=== PATIENT | male | born 1975 | race Caucasian/White ===

== ENCOUNTER 2017-01-22 02:32 | Emergency (ER) | payer MEDICAID ==
[~2017-01-22] VITALS: Ht 175.3 cm; Wt 108.0 kg
[2017-01-22 02:37] VITALS: Ht 175.3 cm; Wt 108.0 kg
--- NOTE | 2017-01-22 03:38 | ERD ---
ER Documentation Chief Complaint Date/Time DATE: 01/22/17 TIME: 03:36 Chief Complaint right upper back pain HPI 40-year-old male presents in emergency department for complaints of right upper back pain radiating to the right upper quadrant that started today. Patient describes the pain is sharp pain, 6/10 scale, not better or worse with anything. It is worse upon movement at times. Patient denies any trauma and affected area. Patient drinks daily, drinks 10 bottles per day of alcohol, has been drinking for years. Patient denies any nausea or vomiting. Patient denies any fever or chills. ROS All systems reviewed and are negative except as per history of present illness. Medications Home Meds Active Scripts Ibuprofen* (Motrin*) 400 Mg Tab, 400 MG PO Q6H Y for PAIN AND OR ELEVATED TEMP, #30 TAB Prov:ABBIE HEARD NP 01/22/17 Ondansetron (Ondansetron Odt) 4 Mg Tab.rapdis, 4 MG PO Q8 Y for NAUSEA AND/OR VOMITING, #30 TAB Prov:ABBIE HEARD NP 01/22/17 Ciprofloxacin Hcl* (Ciprofloxacin Hcl*) 500 Mg Tablet, 500 MG PO BID for 10 Days , TAB Prov:ABBIE HEARD NP 01/22/17 Hydrocodone/Acetaminophen ([place] 5-325 Tablet) 1 Each Tablet, 1 TAB PO Q6H Y for PAIN, #20 TAB Prov:ABBIE HEARD NP 01/22/17 Reported Medications [none] Unknown Strength No Conflict Check 01/22/17 Allergies Allergies: Coded Allergies: No Known Allergy (Unverified , 01/22/17) PMhx/Soc Medical and Surgical Hx: pt denies Medical Hx, pt denies Surgical Hx Hx Alcohol Use: Yes (everyday) Hx Substance Use: No Hx Tobacco Use: No FmHx Family History: No coronary disease, No diabetes, No other Physical Exam Vitals Vital Signs Date Time Temp Pulse Resp B/P Pulse Ox O2 Delivery O2 Flow Rate FiO2 01/22/17 02:37 98.2 73 18 161/91 97 Physical Exam GENERAL: The patient is well developed and appropriate for usual state of health, in no apparent distress. CHEST: Clear to auscultation bilaterally. There are no rales, wheezes or rhonchi. HEART: Regular rate and rhythm. No murmurs, clicks, rubs or gallops. No S3 or S4. ABDOMEN: Soft, nontender and nondistended. Good bowel sounds. No rebound or guarding. No gross peritonitis. No gross organomegaly or masses. No Branham sign or McBurney point tenderness. BACK: No midline or flank tenderness. EXTREMITIES: Equal pulses bilaterally. There is no peripheral clubbing, cyanosis or edema. No focal swelling or erythema. Full range of motion. Grossly neurovascularly intact. NEURO: Alert and oriented. Cranial nerves 2-12 intact. Motor strength in all 4 extremities with 5/5 strength. Sensation grossly intact. Normal speech and gait. SKIN: There is no apparent rash or petechia. The skin is warm and dry. HEMATOLOGIC AND LYMPHATIC: There is no evidence of excessive bruising or lymphedema. No gross cervical, axillary, or inguinal lymphadenopathy. Result Diagram: 01/22/17 0340 01/22/17 0340 Results 24 hrs Laboratory Tests Test 01/22/17 03:35 01/22/17 03:40 Urine Color YELLOW Urine Clarity CLEAR Urine pH 5.0 Urine Specific [place] 1.019 Urine Ketones NEGATIVEmg/dL Urine Nitrite NEGATIVEmg/dL Urine Bilirubin NEGATIVEmg/dL Urine Urobilinogen NEGATIVEmg/dL Urine Leukocyte Esterase 1+Tim/ul Urine Microscopic RBC 1/HPF Urine Microscopic WBC 12/HPF Urine Hemoglobin NEGATIVEmg/dL Urine Glucose NEGATIVEmg/dL Urine Total Protein NEGATIVEmg/dl White Blood Count 6.410^3/ul Red Blood Count 4.5710^6/ul Hemoglobin 15.4g/dl Hematocrit 42.2% Mean Corpuscular Volume 92.3fl Mean Corpuscular Hemoglobin 33.7pg Mean Corpuscular Hemoglobin Concent 36.5g/dl Red Cell Distribution Width 11.9% Platelet Count 95205^3/UL Mean Platelet Volume 11.3fl Neutrophils % 66.1% Lymphocytes % 23.7% Monocytes % 7.5% Eosinophils % 1.7% Basophils % 0.5% Nucleated Red Blood Cells % 0.0/100WBC Neutrophils # 4.310^3/ul Lymphocytes # 1.510^3/ul Monocytes # 0.510^3/ul Eosinophils # 0.110^3/ul Basophils # 0.010^3/ul Nucleated Red Blood Cells # 0.010^3/ul Sodium Level 141mmol/L Potassium Level 3.4mmol/L Chloride Level 100mmol/L Carbon Dioxide Level 21mmol/L Anion Gap 23 Blood Urea Nitrogen 12mg/dl Creatinine 0.72mg/dl Glucose Level 119mg/dl Calcium Level 9.4mg/dl Total Bilirubin 0.8mg/dl Direct Bilirubin 0.00mg/dl Indirect Bilirubin 0.8mg/dl Aspartate Amino Transf (AST/SGOT) 172IU/L Alanine Aminotransferase (ALT/SGPT) 185IU/L Alkaline Phosphatase 79IU/L Total Protein 8.2g/dl Albumin 4.7g/dl Globulin 3.50g/dl Albumin/Globulin Ratio 1.34 Lipase 48U/L PROCEDURE: CT abdomen and pelvis without intravenous contrast. CLINICAL INDICATION: Pain. TECHNIQUE: CT of the abdomen/pelvis was performed utilizing axial images with reconstructions in sagittal and coronal planes. The administered radiation dose is CTDI 21.4 mGy, DLP 1483 mGy-cm. COMPARISON: No pertinent prior examinations were submitted for comparison. FINDINGS: Visualized Chest: There is mild cardiomegaly. Abdomen: The spleen, pancreas, gallbladder,and adrenal glands are unremarkable. The liver is markedly, diffusely decreased in attenuation, compatible with hepatic steatosis. The kidneys are without hydronephrosis. No definite urinary calculi are seen. There is no evidence of bowel obstruction. The appendix is normal. No intra- abdominal free air is seen. There is no evidence of intra-abdominal adenopathy or free fluid. Pelvis: There is no evidence of pelvic adenopathy or free fluid. The prostate and bladder are unremarkable. Osseous structures: Unremarkable. IMPRESSION: No acute findings. Hepatic steatosis. RPTAT: HIKT .Kwabena Rush MD, MD Date Time Electronically viewed and signed by .Kwabena Rush MD, MD on 01/22/2017 04:42 .T/ CC: ABBIE HEARD ONLINE MARKETING MANAGER Procedures/MDM Medical Decision Making: Patient's pain nonspecific at this time, possible musculoskeletal pain, can be viral. Patient has urinary tract infection and will be treated. There is low suspicion for abdominal emergencies at this time. Patients abdominal exam is normal at this time. Patients radiology exam does not show any abdominal emergencies at this time. There is low suspicion for appendicitis, cholecystitis, abdominal aortic aneurysms or peritonitis at this time. There is low suspicion for sepsis. Patient appears well and is hemodynamically stable. Disposition: Home. Condition: Stable Prescription ciprofloxacin, [place], Zofran, ibuprofen Instructions: Patient is advised to take medications as prescribed. Patient is advised to rest, increase fluid intake and do brat diet for next 1-2 days and progress as tolerated. Patient is advised that if symptoms are worse, severe abdominal pain, uncontrolled vomiting, high fever, severe flank pain, worst signs and symptoms, to return to the emergency department immediately. Otherwise, patient can follow up with primary care doctor in 5-7 days. Departure Diagnosis: Primary Impression: Back pain Back pain location: thoracic back pain Chronicity: acute Back pain laterality: right Qualified Code: M54.6 - Acute right-sided thoracic back pain Additional Impression: UTI (urinary tract infection) Urinary tract infection type: acute cystitis Hematuria presence: without hematuria Qualified Code: N30.00 - Acute cystitis without hematuria Condition: Stable Patient Instructions: Back Pain (Acute Or Chronic), Understanding Urinary Tract Infections (UTIs) Additional Instructions: Patient is advised to take medications as prescribed. Patient is advised to rest , increase fluid intake and do brat diet for next 1-2 days and progress as tolerated. Patient is advised that if symptoms are worse, severe abdominal pain , uncontrolled vomiting, high fever, severe flank pain, worst signs and symptoms , to return to the emergency department immediately. Otherwise, patient can follow up with primary care doctor in 5-7 days. ABBIE HEARD NP Jan 22, 2017 03:38
[2017-01-22 04:29] LABS: BASOPHILS % 0.5 % (0.0-2.0); EOSINOPHILS # 0.1 10^3/ul (0.0-0.5); EOSINOPHILS % 1.7 % (0.0-7.0); HEMATOCRIT 42.2 % (42.0-52.0); HEMOGLOBIN 15.4 g/dl (14.0-18.0); LYMPHOCYTES # 1.5 10^3/ul (0.8-2.9); LYMPHOCYTES % 23.7 % (15.0-51.0); MEAN CORPUSCULAR HEMOGLOBIN 33.7 pg (29.0-33.0); MEAN CORPUSCULAR HGB CONC 36.5 g/dl (32.0-37.0); MEAN CORPUSCULAR VOLUME 92.3 fl (82.0-101.0); MEAN PLATELET VOLUME 11.3 fl (7.4-10.4); MONOCYTE # 0.5 10^3/ul (0.3-0.9); MONOCYTES % 7.5 % (0.0-11.0); NEUTROPHIL # 4.3 10^3/ul (1.6-7.5); NEUTROPHILS % 66.1 % (39.0-77.0); PLATELET COUNT 166 10^3/UL (140-415); RED BLOOD COUNT 4.57 10^6/ul (4.70-6.10); RED CELL DISTRIBUTION WIDTH 11.9 % (11.5-14.5); WHITE BLOOD COUNT 6.4 10^3/ul (4.8-10.8)
[2017-01-22 04:31] LABS: ADD UMIC YES; UR ASCORBIC ACID NEGATIVE (NEGATIVE); UR BILIRUBIN (Dip) NEGATIVE (NEGATIVE); UR BLOOD (Dip) NEGATIVE (NEGATIVE); UR CLARITY CLEAR (CLEAR); UR COLOR YELLOW (YELLOW); UR GLUCOSE (Dip) NEGATIVE (NEGATIVE); UR KETONES (Dip) NEGATIVE (NEGATIVE); UR LEUKOCYTE ESTERASE (Dip) 1+ Leu/ul (NEGATIVE); UR NITRITE (Dip) NEGATIVE (NEGATIVE); UR RBC 1 /HPF (0-5); UR SPECIFIC GRAVITY (Dip) 1.019 (1.003-1.030); UR TOTAL PROTEIN (Dip) NEGATIVE (NEGATIVE); UR UROBILINOGEN (Dip) NEGATIVE (NEGATIVE)
--- NOTE | 2017-01-22 04:42 | RADRPT ---
PROCEDURE: CT abdomen and pelvis without intravenous contrast. CLINICAL INDICATION: Pain. TECHNIQUE: CT of the abdomen/pelvis was performed utilizing axial images with reconstructions in s agittal and coronal planes. The administered radiation dose is CTDI 21.4 mGy, DLP 1483 mGy-cm. COMPARISON: No pertinent prior examinations were submitted for comparison. FINDINGS: Visualized Chest: There is mild cardiomegaly. Abdomen: The spleen, pancreas, gallbladder,and adrenal glands are unremarkable. The liver is markedly, dif fusely decreased in attenuation, compatible with hepatic steatosis. The kidneys are without hydronephrosis. No definite urinary calculi are seen. There is no evidence of bowel obstruction. The appendix is normal. No intra-abdominal free air is seen. There is no evidence of intra-abdominal adenopathy or free fluid. Pelvis: There is no evidence of pelvic adenopathy or free fluid. The prostate and bladder are unremarkable. Osseous structures: Unremarkable. IMPRESSION: No acute findings. Hepatic steatosis. RPTAT: HIKT .Kwabena Rush MD, MD Date Time Electronically viewed and signed by .Kwabena Rush MD, MD on 01/22/2017 04:42 .T/
[2017-01-22 04:46] LABS: ALBUMIN 4.7 g/dl (3.3-4.9); ALBUMIN/GLOBULIN RATIO 1.34; BILIRUBIN,INDIRECT 0.8 mg/dl (0-1.1); BILIRUBIN,TOTAL 0.8 mg/dl (0.2-1.3); CALCIUM 9.4 mg/dl (8.4-10.2); CREATININE 0.72 mg/dl (0.61-1.24); POTASSIUM 3.4 mmol/L (3.5-5.1); TOTAL PROTEIN 8.2 g/dl (6.1-8.1)
[2017-01-22] MEDS ORDERED: IBUP400T22 PO (05:06)
[2017-01-22] MEDS ORDERED: HYDR-906 PO (05:06)
[2017-01-22] MEDS ORDERED: ONDA4TAB14 PO (05:06)
[2017-01-22] MEDS ORDERED: CIPR500T4 PO (05:06)
== END 2017-01-22 05:14 | disposition home or self-care (01) ==
LOC: FTE 02:32
DX: M54.6 Pain in thoracic spine (principal); N30.00 Acute cystitis without hematuria
CPT/HCPCS: 36415; 74176; 80053; 81001; 83690; 85025; Z7502

== ENCOUNTER 2018-10-14 18:21 | Inpatient (IN) | payer MEDICAID ==
[~2018-10-14] VITALS: Ht 175.3 cm; Wt 110.0 kg
[~2018-10-14 18:21] MED LIST: CIPR500T4 PO; HYDR-4011 PO; IBUP-1561 PO; ONDA4TAB14 PO
[2018-10-14] MEDS ORDERED: METOCLOPRAMIDE 10 MG INJ IV STA (21:11)
[2018-10-14] MEDS ORDERED: SOD CHLORIDE 0.9% 1,000 ML IV STA (21:11)
[2018-10-14] MEDS ORDERED: IOHEXOL 300MG/ML 150 ML BTL ONE (22:13)
[2018-10-14] MEDS ORDERED: SOD CHLORIDE 0.9% 100 ML ONE (22:13)
[2018-10-15] MEDS ORDERED: PHEN1SUP80 PR (00:24)
[2018-10-15] MEDS ORDERED: POLY17PO6 PO (00:24)
[2018-10-15] MEDS ORDERED: MAGN296S4 PO (00:30)
[2018-10-15] MEDS ORDERED: SOD CHLORIDE 0.9% 1,000 ML IV SCH (02:18)
[2018-10-15] MEDS ORDERED: NACL 0.9% 3 ML SYG IV SCH (02:30)
[2018-10-15] MEDS ORDERED: ONDANSETRON 4 MG INJ IV PRN (02:30)
[2018-10-15] MEDS ORDERED: morphine 2 MG INJ IV PRN (02:30)
--- NOTE | 2018-10-15 02:35 | ERD ---
ER Documentation Chief Complaint Chief Complaint CONSTIPATION X3DAYS HPI This is a 43-year-old male patient who presents to emergency room with complaint of no bowel movements times 5 days now with abdominal pain. States he is taking senna and tried enemas without any results. Denies fevers although he says he has been feeling hot, no vomiting. Eyes any chronic medical conditions. ROS All systems reviewed and are negative except as per history of present illness. Medications Home Meds Active Scripts Magnesium Citrate (Citroma) 296 Ml Solution, 296 ML PO ONCE for CONSTIPATION for 3 Days, #1 BOTTLE Prov:DEJUAN BAKER NP 10/15/18 Polyethylene Glycol* (Miralax*) 17 Gm Powd.pack, 17 GM PO BID, #30 PACKET Prov:DEJUAN BAKER NP 10/15/18 Phenylephrine HCl/[place] Butter* (Preparation H* Suppository) 1 Each Supp.rect, 1 EACH IN BID for 10 Days, #20 SUPP.RECT Prov:DEJUAN BAKER NP 10/15/18 Ibuprofen* (Motrin*) 400 Mg Tab, 400 MG PO Q6H PRN for PAIN AND OR ELEVATED TEMP, #30 TAB Prov:ABBIE HEARD NP 01/22/17 Ondansetron (Ondansetron Odt) 4 Mg Tab.rapdis, 4 MG PO Q8 PRN for NAUSEA AND/OR VOMITING, #30 TAB Prov:ABBIE HEARD NP 01/22/17 Ciprofloxacin Hcl* (Ciprofloxacin Hcl*) 500 Mg Tablet, 500 MG PO BID for 10 Days, TAB Prov:ABBIE HEARD NP 01/22/17 Hydrocodone/Acetaminophen ([place] 5-325 Tablet) 1 Each Tablet, 1 TAB PO Q6H PRN for PAIN, #20 TAB Prov:ABBIE HEARD NP 01/22/17 Reported Medications [none] Unknown Strength No Conflict Check 01/22/17 Allergies Allergies: Coded Allergies: No Known Allergy (Unverified , 01/22/17) PMhx/Soc Medical and Surgical Hx: pt denies Medical Hx, pt denies Surgical Hx Hx Alcohol Use: Yes (everyday) Hx Substance Use: No Hx Tobacco Use: No Physical Exam Vitals Vital Signs Date Temp Pulse Resp B/P (MAP) Pulse Ox O2 O2 Flow FiO2 Time Delivery Rate 10/15/18 100.1 88 18 121/80 98 Room Air 02:03 (94) 10/15/18 101.2 78 20 114/67 95 Room Air 01:34 (83) 10/14/18 99.2 56 19 142/88 95 19:08 (106) Physical Exam Const: No acute distress Head: Atraumatic Eyes: Normal Conjunctiva ENT: Normal External Ears, Nose and Mouth. Neck: Full range of motion. No meningismus. Resp: Clear to auscultation bilaterally Cardio: Regular rate and rhythm, no murmurs Abd: Firm, warm at lower abdomen, diffuse tenderness, no active bowel sounds, neg Branham Skin: No petechiae or rashes Back: No midline or flank tenderness Ext: No cyanosis, or edema Neur: Awake and alert Psych: Normal Mood and Affect Result Diagram: 10/14/18211610/14/182116 Results 24 hrs Laboratory Tests Test 10/14/18 21:17 10/14/18 21:18 White Blood Count 15.1 10^3/ul Red Blood Count 4.30 10^6/ul Hemoglobin 13.6 g/dl Hematocrit 39.5 % Mean Corpuscular Volume 91.9 fl Mean Corpuscular Hemoglobin 31.6 pg Mean Corpuscular Hemoglobin Concent 34.4 g/dl Red Cell Distribution Width 12.2 % Platelet Count 174 10^3/UL Mean Platelet Volume 11.6 fl Immature Granulocytes % 0.800 % Neutrophils % 79.3 % Lymphocytes % 11.7 % Monocytes % 6.6 % Eosinophils % 1.2 % Basophils % 0.4 % Nucleated Red Blood Cells % 0.0 /100WBC Immature Granulocytes # 0.120 10^3/ul Neutrophils # 12.0 10^3/ul Lymphocytes # 1.8 10^3/ul Monocytes # 1.0 10^3/ul Eosinophils # 0.2 10^3/ul Basophils # 0.1 10^3/ul Nucleated Red Blood Cells # 0.0 10^3/ul Sodium Level 138 mmol/L Potassium Level 3.3 mmol/L Chloride Level 100 mmol/L Carbon Dioxide Level 26 mmol/L Anion Gap 12 Blood Urea Nitrogen 12 mg/dl Creatinine 0.90 mg/dl Est Glomerular Filtrat Rate mL/min > 60 mL/min Glucose Level 148 mg/dl Lactic Acid Level 1.0 mmol/L Calcium Level 9.1 mg/dl Total Bilirubin 1.0 mg/dl Direct Bilirubin 0.00 mg/dl Indirect Bilirubin 1.0 mg/dl Aspartate Amino Transf (AST/SGOT) 68 IU/L Alanine Aminotransferase (ALT/SGPT) 35 IU/L Alkaline Phosphatase 122 IU/L Total Protein 8.1 g/dl Albumin 4.1 g/dl Globulin 4.00 g/dl Albumin/Globulin Ratio 1.02 Lipase 510 U/L Urine Color AMITA Urine Clarity SLIGHTLY CLOUDY Urine pH 6.0 Urine Specific [place] 1.020 Urine Ketones NEGATIVE mg/dL Urine Nitrite NEGATIVE mg/dL Urine Bilirubin NEGATIVE mg/dL Urine Urobilinogen NEGATIVE mg/dL Urine Leukocyte Esterase NEGATIVE Tim/ul Urine Microscopic RBC 1 /HPF Urine Microscopic WBC 1 /HPF Urine Hemoglobin NEGATIVE mg/dL Urine Glucose NEGATIVE mg/dL Urine Total Protein 1+ mg/dl Current Medications Medications Dose Sig/[place] Start Time Status Last (Trade) Ordered Route PRN Stop Time Admin Dose Reason Admin Sodium 1,000 ml @ Q1H STAT 10/14/18 DC 10/14/18 Chloride 1,000 mls/hr IV 21:11 21:44 10/14/18 22:10 10 mg ONCE STAT 10/14/18 DC 10/14/18 Metoclopramid IV 21:11 21:44 e HCl 10/14/18 21:14 (Reglan) IV Flush 10 ml STK-MED 10/14/18 DC (NS 10 ml) ONCE .ROUTE 22:13 10/14/18 22:14 Sodium 100 ml @ ud STK-MED 10/14/18 DC Chloride ONCE .ROUTE 22:13 10/14/18 22:14 Iohexol 150 ml STK-MED 10/14/18 DC (Omnipaque ONCE .ROUTE 22:13 300mg/ ml) 10/14/18 22:14 Sodium 1,000 ml @ Q6H40M IV 10/15/18 UNV Chloride 150 mls/hr 02:18 IV Flush 3 ml PER 10/15/18 UNV (NS 3 ml) PROTOCOL IV 02:30 Ondansetron 4 mg Q6H PRN 10/15/18 UNV HCl (Zofran IV 02:30 Inj) NAUSEA/VOMITI NG Morphine 2 mg Q4H PRN 10/15/18 UNV Sulfate IV .SEVERE 02:30 (morphine) PAIN 7-10 Famotidine 20 mg Q12 IV 10/15/18 UNV (Pepcid Iv) 09:00 Procedures/MDM This is a 43-year-old male patient who presents to the emergency room with complaint of constipation times 5 days. And now is having abdominal pain. ED COURSE: The patient was stable throughout ED course. I kept the patient and/or family informed of laboratory and diagnostic imaging results throughout the ED course. DIAGNOSTIC IMAGIN. Acute interstitial pancreatitis involving the pancreatic head and neck with acute peripancreatic collections in the right anterior pararenal space extending into the right pelvic sidewall and also in the gastrocolic ligament. The pancreatitis involves the pancreaticoduodenal groove with associated inflammation of the duodenum and common bile duct. Negative for evidence of biliary obstruction. 2. Mild inflammation of the right ureter and right renal pelvis likely due to the acute pancreatitis without hydronephrosis. The right ureter courses through the peripancreatic collection in the right retroperitoneum. 3. Mild hepatosplenomegaly. Read by radiologist. MEDICATIONS GIVEN: MICHI Reyes Patient tolerated medication well with no adverse reactions. Patient reported improvement in pain. MDM: CT results shared with who took over care of patient and admitted patient to hospital. Need for admission discussed with patient and his , patient verbalized understanding of need to stay in hospital. Patient states he only drinks alcohol. . Departure Diagnosis: Primary Impression: Abdominal pain Additional Impression: Constipation Condition: Stable Patient Instructions: Abdominal Pain, Constipation (Adult) Referrals: NO PRIMARY,CARE PHYSICIAN (PCP) Additional Instructions: Thank you very much for allowing us to participate in your care. Your health and safety is our top priority at [facility]. Call your primary care doctor TOMORROW for an appointment during the next 2-4 days and bring all the information and medications prescribed. Have prescriptions filled and follow precisely the directions on the label. If the symptoms get worse and your provider is unavailable, return to the Emergency Department immediately. DEJUAN BAKER NP Oct 15, 2018 02:35
[2018-10-15] MEDS ORDERED: IBUPROFEN 600 MG TAB PO ONE (03:00)
[2018-10-15] MEDS: MEROPENEM 500MG/50 ML (PMX) 50 ML IVPB SCH ×2 (06:33→21:02)
[2018-10-15 08:15] VITALS: BP 112/63; PULSE 74; RESP 18
--- NOTE | 2018-10-15 08:30 | HP ---
Date/Time of Note Date/Time of Note DATE: 10/15/18 TIME: 08:24 Assessment/Plan VTE Prophylaxis Pharmacological prophylaxis: heparin Lines/Catheters IV Catheter Type (from Nrs): Saline Lock Assessment/Plan Assessment/Plan 43-year-old male with a history of alcohol abuse presented with abdominal pain and constipation and found 1. Acute alcoholic pancreatitis -N.p.o. with IV fluid -Given fever, will start him on meropenem -Pain management 2. Sepsis: As evidenced by fever and leukocytosis: Secondary to above -Follow-up culture results 3. Constipation: Patient has not been eating much for the past 5 days and I think it is related to decreased p.o. intake. CT without obstruction 4. Alcohol abuse: Last drink was 5 days ago. No sign of withdrawal symptoms. -Abstinence from alcohol has been enforced 5. Obesity: With a BMI of 37: Weight reduction advised Result Diagram: 10/15/18 0626 10/15/18 0626 Results 24hrs Laboratory Tests Test 10/14/18 21:17 10/14/18 21:18 10/15/18 06:26 White Blood Count 15.1 #H 12.9 H Red Blood Count 4.30 L 3.56 L Hemoglobin 13.6 L 11.7 L Hematocrit 39.5 L 33.2 L Mean Corpuscular Volume 91.9 93.3 Mean Corpuscular Hemoglobin 31.6 32.9 Mean Corpuscular 34.4 35.2 Hemoglobin Concent Red Cell Distribution Width 12.2 12.3 Platelet Count 174 147 Mean Platelet Volume 11.6 H 11.4 H Immature Granulocytes % 0.800 H 0.900 H Neutrophils % 79.3 H 74.7 Lymphocytes % 11.7 L 14.1 L Monocytes % 6.6 8.0 Eosinophils % 1.2 1.9 Basophils % 0.4 0.4 Nucleated Red Blood Cells % 0.0 0.0 Immature Granulocytes # 0.120 H 0.110 H Neutrophils # 12.0 H 9.7 H Lymphocytes # 1.8 1.8 Monocytes # 1.0 H 1.0 H Eosinophils # 0.2 0.3 Basophils # 0.1 0.1 Nucleated Red Blood Cells # 0.0 0.0 Sodium Level 138 138 Potassium Level 3.3 L 2.9 *L Chloride Level 100 106 Carbon Dioxide Level 26 23 Anion Gap 12 9 Blood Urea Nitrogen 12 11 Creatinine 0.90 0.73 Est Glomerular Filtrat > 60 > 60 Rate mL/min Glucose Level 148 131 Lactic Acid Level 1.0 Calcium Level 9.1 8.5 Total Bilirubin 1.0 0.8 Direct Bilirubin 0.00 0.00 Indirect Bilirubin 1.0 0.8 Aspartate Amino 68 H 55 H Transf (AST/SGOT) Alanine 35 33 Aminotransferase (ALT/SGPT) Alkaline Phosphatase 122 H 95 Total Protein 8.1 6.6 # Albumin 4.1 3.2 L Globulin 4.00 H 3.40 H Albumin/Globulin Ratio 1.02 0.94 Lipase 510 H Urine Color AMITA Urine Clarity SLIGHTLY CLOUDY A Urine pH 6.0 Urine Specific [place] 1.020 Urine Ketones NEGATIVE Urine Nitrite NEGATIVE Urine Bilirubin NEGATIVE Urine Urobilinogen NEGATIVE Urine Leukocyte Esterase NEGATIVE Urine Microscopic RBC 1 Urine Microscopic WBC 1 Urine Hemoglobin NEGATIVE Urine Glucose NEGATIVE Urine Total Protein 1+ H Hemoglobin A1c 5.8 Phosphorus Level 4.4 Magnesium Level 2.3 Triglycerides Level 286 H Cholesterol Level 221 H LDL Cholesterol, Calculated 142 HDL Cholesterol 22 L Cholesterol/HDL Ratio 10.0 HPI/ROS Admit Date/Time Admit Date/Time Oct 15, 2018 at 01:44 Hx of Present Illness This is a 43-year-old male with a history of alcohol abuse who presented to the ER complaining of abdominal pain and constipation. He said he has not had a bowel movement for the past 5 days. He said that he has been eating little to none over the past 5 days because of abdominal pain. He has been drinking twelve cans of 12 ounce of beer every day for the past several years. Last drink was 5 days ago. When he presented to the ER, he is found to have a lipase of 510. On the ER he has been afebrile white count 15,000. CT abdomen/pelvis shows the followin. Acute interstitial pancreatitis involving the pancreatic head and neck with acute peripancreatic collections in the right anterior pararenal space extending into the right pelvic sidewall and also in the gastrocolic ligament. The pancreatitis involves the pancreaticoduodenal groove with associated inflammation of the duodenum and common bile duct. Negative for evidence of biliary obstruction. 2. Mild inflammation of the right ureter and right renal pelvis likely due to the acute pancreatitis without hydronephrosis. The right ureter courses through the peripancreatic collection in the right retroperitoneum. 3. Mild hepatosplenomegaly. PMH/Family/Social Past Medical History Medical History: other (See HPI) Medications Current Medications Sodium Chloride 1,000 ml @ 150 mls/hr Q6H40M IV Last administered on 10/15/18at 03:15; Admin Dose 150 MLS/HR; Start 10/15/18 at 02:18 IV Flush (NS 3 ml) 3 ml PER PROTOCOL IV ; Start 10/15/18 at 02:30 Ondansetron HCl (Zofran Inj) 4 mg Q6H PRN IV NAUSEA/VOMITING; Start 10/15/18 at 02:30 Morphine Sulfate (morphine) 2 mg Q4H PRN IV .SEVERE PAIN 7-10; Start 10/15/18 at 02:30 Famotidine (Pepcid Iv) 20 mg Q12 IV ; Start 10/15/18 at 09:00 Meropenem/Sodium Chloride 50 ml @ 100 mls/hr Q12 IVPB Last administered on 10/15/18at 06:33; Admin Dose 100 MLS/HR; Start 10/15/18 at 06:00 Potassium Chloride 100 ml @ 50 mls/hr Q2H IVPB ; Start 10/15/18 at 08:30; Stop 10/15/18 at 14:29; Status UNV Coded Allergies: No Known Allergy (Unverified , 01/22/17) Past Surgical History Past Surgical Hx: other Family History Significant Family History: no pertinent family hx (See HPI) Social History Alcohol Use: heavy Smoking Status: Never smoker Drug Use: none Exam/Review of Systems Vital Signs Vitals Vital Signs Date Temp Pulse Resp B/P (MAP) Pulse Ox O2 O2 Flow FiO2 Time Delivery Rate 10/15/18 75 16 110/70 98 Room Air 08:11 (83) 10/15/18 100.9 03:14 Intake and Output 10/14/18 10/14/18 10/15/18 1515:00 23:00 07:00 IntakeIntake Total 1000 ml BalanceBalance 1000 ml Exam Constitutional: other (No acute distress. Answering questions appropriately) Head: normocephalic, atraumatic Eyes: EOMI, PERRL Respiratory: clear to auscultation, normal air movement Cardiovascular: regular rate and rhythm, nl pulses Gastrointestinal: other (Pain elicited to be palpation diffusely. No guarding, no rebound tenderness, no rigidity) Extremities: normal pulses TONIE CURRIE MD Oct 15, 2018 08:30
[2018-10-15] MEDS: D5W-0.45 NACL + KCL 20 MEQ 1,000 ML IV SCH ×2 (08:45→16:30)
[2018-10-15] MEDS: FAMOTIDINE 20 MG INJ IV SCH ×2 (08:49→20:28)
[2018-10-15 09:00] VITALS: Ht 175.3 cm; Wt 110.0 kg
[2018-10-15] MEDS: POTASSIUM CHLORIDE 100 ML IVPB SCH ×3 (10:44→18:27)
--- NOTE | 2018-10-15 13:36 | PN ---
Date/Time of Note Date/Time of Note DATE: 10/15/18 TIME: 13:34 Assessment/Plan VTE Prophylaxis Pharmacological prophylaxis: heparin Lines/Catheters IV Catheter Type (from Nrsg): Saline Lock Assessment/Plan Hospital Course 43 yo male wtih etoh use d/o who presents with acute alcoholic pancreatitis - IVF and pain control Hypokalemia: - Replete as needed etoh use d/o: - cessation advised Result Diagram: 10/15/18 0626 10/15/18 0626 Results 24hrs Laboratory Tests Test 10/14/18 21:17 10/14/18 21:18 10/15/18 06:26 White Blood Count 15.1 #H 12.9 H Red Blood Count 4.30 L 3.56 L Hemoglobin 13.6 L 11.7 L Hematocrit 39.5 L 33.2 L Mean Corpuscular Volume 91.9 93.3 Mean Corpuscular Hemoglobin 31.6 32.9 Mean Corpuscular 34.4 35.2 Hemoglobin Concent Red Cell Distribution Width 12.2 12.3 Platelet Count 174 147 Mean Platelet Volume 11.6 H 11.4 H Immature Granulocytes % 0.800 H 0.900 H Neutrophils % 79.3 H 74.7 Lymphocytes % 11.7 L 14.1 L Monocytes % 6.6 8.0 Eosinophils % 1.2 1.9 Basophils % 0.4 0.4 Nucleated Red Blood Cells % 0.0 0.0 Immature Granulocytes # 0.120 H 0.110 H Neutrophils # 12.0 H 9.7 H Lymphocytes # 1.8 1.8 Monocytes # 1.0 H 1.0 H Eosinophils # 0.2 0.3 Basophils # 0.1 0.1 Nucleated Red Blood Cells # 0.0 0.0 Sodium Level 138 138 Potassium Level 3.3 L 2.9 *L Chloride Level 100 106 Carbon Dioxide Level 26 23 Anion Gap 12 9 Blood Urea Nitrogen 12 11 Creatinine 0.90 0.73 Est Glomerular Filtrat > 60 > 60 Rate mL/min Glucose Level 148 131 Lactic Acid Level 1.0 Calcium Level 9.1 8.5 Total Bilirubin 1.0 0.8 Direct Bilirubin 0.00 0.00 Indirect Bilirubin 1.0 0.8 Aspartate Amino 68 H 55 H Transf (AST/SGOT) Alanine 35 33 Aminotransferase (ALT/SGPT) Alkaline Phosphatase 122 H 95 Total Protein 8.1 6.6 # Albumin 4.1 3.2 L Globulin 4.00 H 3.40 H Albumin/Globulin Ratio 1.02 0.94 Lipase 510 H Urine Color AMITA Urine Clarity SLIGHTLY CLOUDY A Urine pH 6.0 Urine Specific [place] 1.020 Urine Ketones NEGATIVE Urine Nitrite NEGATIVE Urine Bilirubin NEGATIVE Urine Urobilinogen NEGATIVE Urine Leukocyte Esterase NEGATIVE Urine Microscopic RBC 1 Urine Microscopic WBC 1 Urine Hemoglobin NEGATIVE Urine Glucose NEGATIVE Urine Total Protein 1+ H Hemoglobin A1c 5.8 Phosphorus Level 4.4 Magnesium Level 2.3 Triglycerides Level 286 H Cholesterol Level 221 H LDL Cholesterol, Calculated 142 HDL Cholesterol 22 L Cholesterol/HDL Ratio 10.0 Subjective 24 Hr Interval Summary Free Text/Dictation Feeling epigasric pain Nausea, cant eat Exam/Review of Systems Exam Vitals Vital Signs Date Temp Pulse Resp B/P (MAP) Pulse Ox O2 O2 Flow FiO2 Time Delivery Rate 10/15/18 98.4 74 18 112/63 98 Room Air 08:15 (79) Intake and Output 10/14/18 10/14/18 10/15/18 1515:00 23:00 07:00 IntakeIntake Total 1000 ml BalanceBalance 1000 ml Results Results 24hrs Laboratory Tests Test 10/14/18 21:17 10/14/18 21:18 10/15/18 06:26 White Blood Count 15.1 #H 12.9 H Red Blood Count 4.30 L 3.56 L Hemoglobin 13.6 L 11.7 L Hematocrit 39.5 L 33.2 L Mean Corpuscular Volume 91.9 93.3 Mean Corpuscular Hemoglobin 31.6 32.9 Mean Corpuscular 34.4 35.2 Hemoglobin Concent Red Cell Distribution Width 12.2 12.3 Platelet Count 174 147 Mean Platelet Volume 11.6 H 11.4 H Immature Granulocytes % 0.800 H 0.900 H Neutrophils % 79.3 H 74.7 Lymphocytes % 11.7 L 14.1 L Monocytes % 6.6 8.0 Eosinophils % 1.2 1.9 Basophils % 0.4 0.4 Nucleated Red Blood Cells % 0.0 0.0 Immature Granulocytes # 0.120 H 0.110 H Neutrophils # 12.0 H 9.7 H Lymphocytes # 1.8 1.8 Monocytes # 1.0 H 1.0 H Eosinophils # 0.2 0.3 Basophils # 0.1 0.1 Nucleated Red Blood Cells # 0.0 0.0 Sodium Level 138 138 Potassium Level 3.3 L 2.9 *L Chloride Level 100 106 Carbon Dioxide Level 26 23 Anion Gap 12 9 Blood Urea Nitrogen 12 11 Creatinine 0.90 0.73 Est Glomerular Filtrat > 60 > 60 Rate mL/min Glucose Level 148 131 Lactic Acid Level 1.0 Calcium Level 9.1 8.5 Total Bilirubin 1.0 0.8 Direct Bilirubin 0.00 0.00 Indirect Bilirubin 1.0 0.8 Aspartate Amino 68 H 55 H Transf (AST/SGOT) Alanine 35 33 Aminotransferase (ALT/SGPT) Alkaline Phosphatase 122 H 95 Total Protein 8.1 6.6 # Albumin 4.1 3.2 L Globulin 4.00 H 3.40 H Albumin/Globulin Ratio 1.02 0.94 Lipase 510 H Urine Color AMITA Urine Clarity SLIGHTLY CLOUDY A Urine pH 6.0 Urine Specific [place] 1.020 Urine Ketones NEGATIVE Urine Nitrite NEGATIVE Urine Bilirubin NEGATIVE Urine Urobilinogen NEGATIVE Urine Leukocyte Esterase NEGATIVE Urine Microscopic RBC 1 Urine Microscopic WBC 1 Urine Hemoglobin NEGATIVE Urine Glucose NEGATIVE Urine Total Protein 1+ H Hemoglobin A1c 5.8 Phosphorus Level 4.4 Magnesium Level 2.3 Triglycerides Level 286 H Cholesterol Level 221 H LDL Cholesterol, Calculated 142 HDL Cholesterol 22 L Cholesterol/HDL Ratio 10.0 Medications Medication Current Medications IV Flush (NS 3 ml) 3 ml PER PROTOCOL IV ; Start 10/15/18 at 02:30 Ondansetron HCl (Zofran Inj) 4 mg Q6H PRN IV NAUSEA/VOMITING; Start 10/15/18 at 02:30 Morphine Sulfate (morphine) 2 mg Q4H PRN IV .SEVERE PAIN 7-10; Start 10/15/18 at 02:30 Famotidine (Pepcid Iv) 20 mg Q12 IV Last administered on 10/15/18at 08:49; Admin Dose 20 MG; Start 10/15/18 at 09:00 Meropenem/Sodium Chloride 50 ml @ 100 mls/hr Q12 IVPB Last administered on 10/15/18at 06:33; Admin Dose 100 MLS/HR; Start 10/15/18 at 06:00 Potassium Chloride 100 ml @ 50 mls/hr Q2H IVPB Last administered on 10/15/18at 10:44; Admin Dose 50 MLS/HR; Start 10/15/18 at 08:30; Stop 10/15/18 at 14:29 Potassium Chloride/Dextrose/ Sod Cl 1,000 ml @ 125 mls/hr Q8H IV Last administered on 10/15/18at 08:45; Admin Dose 125 MLS/HR; Start 10/15/18 at 08:30 SHERRON DEVINE MD Oct 15, 2018 13:36
[2018-10-15 14:02] VITALS: BP 120/72; PULSE 88; RESP 19
[2018-10-15 20:03] VITALS: BP 116/71; PULSE 92; RESP 18
[2018-10-16] MEDS: D5W-0.45 NACL + KCL 20 MEQ 1,000 ML IV SCH ×2 (00:30→05:32)
[2018-10-16 02:53] VITALS: BP 121/80; PULSE 72; RESP 18
[2018-10-16 08:00] VITALS: BP 122/70; PULSE 88; RESP 17
[2018-10-16] MEDS: MEROPENEM 500MG/50 ML (PMX) 50 ML IVPB SCH (09:30)
[2018-10-16] MEDS: FAMOTIDINE 20 MG INJ IV SCH (09:31)
[2018-10-16] MEDS ORDERED: POTASSIUM CHLORIDE (SR) 20 MEQ TAB PO STA (11:14)
--- NOTE | 2018-10-16 11:15 | PDOCDIS ---
Discharge Instructions CONDITION [id number] Patient Condition: [id number] Stable HOME CARE INSTRUCTIONS: [id number] Diet Instructions: [id number] Regular FOLLOW UP/APPOINTMENTS Follow-up Plan follow-up with primary care physician in1 week AMAIRANI SAUCEDA NP Oct 16, 2018 11:15
--- NOTE | 2018-10-16 11:23 | DS ---
Date/Time of Note Date/Time of Note DATE: 10/16/18 TIME: 11:21 Discharge Summary Admission/Discharge Info Admit Date/Time Oct 15, 2018 at 01:44 Discharge Date/Time Discharge Diagnosis EtOH pancreatitis EtOH abuse. Obesity Hypercholesterolemia/triglyceridemia. Patient Condition: Stable Procedures 10/15/2018. CT abdomen and pelvis. IMPRESSION: 1. Acute interstitial pancreatitis involving the pancreatic head and neck with acute peripancreatic collections in the right anterior pararenal space extending into the right pelvic sidewall and also in the gastrocolic ligament. The pancreatitis involves the pancreaticoduodenal groove with associated inflammation of the duodenum and common bile duct. Negative for evidence of biliary obstruction. 2. Mild inflammation of the right ureter and right renal pelvis likely due to the acute pancreatitis without hydronephrosis. The right ureter courses through the peripancreatic collection in the right retroperitoneum. 3. Mild hepatosplenomegaly. Hospital Course 43 yo male wtih etoh use d/o who presents with acute alcoholic pancreatitis.. Patient also did have some hypercholesterolemia/triglyceridemia, but not high as one would see causing pancreatitis. Patient was managed conservatively with IV fluids and pain control. He did not have any evidence of infection acid no indication to continue antimicrobials. Electrolyte level was monitored closely repleted as needed. He was counseled on EtOH cessation. At this time gallbladder lipase trended down. Abdominal pain resolved. He was able to tolerate diet and activities well. Patient is getting back to his baseline it is very good to be discharged. Patient is stable for outpatient follow-up. Approximately 60 with and coordinating the discharge of this patient. Next Patient was seen in collaboration with Dr. Kidd. Home Meds Active Scripts Magnesium Citrate (Citroma) 296 Ml Solution, 296 ML PO ONCE for CONSTIPATION for 3 Days, #1 BOTTLE Prov:DEJUAN BAKER NP 10/15/18 Polyethylene Glycol* (Miralax*) 17 Gm Powd.pack, 17 GM PO BID, #30 PACKET Prov:DEJUAN BAKER NP 10/15/18 Phenylephrine HCl/[place] Butter* (Preparation H* Suppository) 1 Each Supp.rect, 1 EACH NH BID for 10 Days, #20 SUPP.RECT Prov:DEJUAN BAKER NP 10/15/18 Ibuprofen* (Motrin*) 400 Mg Tab, 400 MG PO Q6H PRN for PAIN AND OR ELEVATED TEMP, #30 TAB Prov:ABBIE HEARD NP 01/22/17 Ondansetron (Ondansetron Odt) 4 Mg Tab.rapdis, 4 MG PO Q8 PRN for NAUSEA AND/OR VOMITING, #30 TAB Prov:FÉLIXABBIE NP 01/22/17 Ciprofloxacin Hcl* (Ciprofloxacin Hcl*) 500 Mg Tablet, 500 MG PO BID for 10 Days, TAB Prov:ABBIE HEARD NP 01/22/17 Hydrocodone/Acetaminophen ([place] 5-325 Tablet) 1 Each Tablet, 1 TAB PO Q6H PRN f or PAIN, #20 TAB Prov:ABBIE HEARD NP 01/22/17 Reported Medications [none] Unknown Strength No Conflict Check 01/22/17 Follow-up Plan follow-up with primary care physician in1 week Primary Care Provider Care Physician No Primary Pending Labs Laboratory Tests Test 10/16/18 04:29 White Blood Count 13.6 10^3/ul (4.8-10.8) Red Blood Count 3.74 10^6/ul (4.70-6.10) Hemoglobin 11.9 g/dl (14.0-18.0) Hematocrit 34.9 % (42.0-52.0) Mean Corpuscular Volume 93.3 fl (82.0-101.0) Mean Corpuscular Hemoglobin 31.8 pg (29.0-33.0) Mean Corpuscular Hemoglobin Concent 34.1 g/dl (32.0-37.0) Red Cell Distribution Width 12.3 % (11.5-14.5) Platelet Count 187 10^3/UL (140-415) Mean Platelet Volume 11.6 fl (7.4-10.4) Immature Granulocytes % 1.800 % (0.001-0.429) Neutrophils % 73.7 % (39.0-77.0) Lymphocytes % 14.5 % (15.0-51.0) Monocytes % 8.0 % (0.0-11.0) Eosinophils % 1.5 % (0.0-7.0) Basophils % 0.5 % (0.0-2.0) Nucleated Red Blood Cells % 0.0 /100WBC (0.0-0.0) Immature Granulocytes # 0.250 10^3/ul (0.0-0.031) Neutrophils # 10.0 10^3/ul (1.6-7.5) Lymphocytes # 2.0 10^3/ul (0.8-2.9) Monocytes # 1.1 10^3/ul (0.3-0.9) Eosinophils # 0.2 10^3/ul (0.0-0.5) Basophils # 0.1 10^3/ul (0.0-0.1) Nucleated Red Blood Cells # 0.0 10^3/ul (0.0-0.0) Sodium Level 137 mmol/L (135-144) Potassium Level 3.4 mmol/L (3.5-5.1) Chloride Level 103 mmol/L (97-110) Carbon Dioxide Level 25 mmol/L (21-31) Anion Gap 9 (5-13) Blood Urea Nitrogen 9 mg/dl (7-20) Creatinine 0.72 mg/dl (0.61-1.24) Est Glomerular Filtrat Rate mL/min > 60 mL/min (>60) Glucose Level 123 mg/dl (70-220) Calcium Level 8.6 mg/dl (8.4-10.2) Phosphorus Level 4.4 mg/dl (2.5-4.9) Magnesium Level 2.3 mg/dl (1.7-2.5) Lipase 482 U/L (23-300) AMAIRANI SAUCEDA V. [employer] Oct 16, 2018 11:23
[2018-10-16] MEDS ORDERED: OMEG1CAP17 PO (11:24)
[2018-10-16] MEDS ORDERED: ATOR10TA65 PO (11:24)
== END 2018-10-16 14:47 | disposition home or self-care (01) | DRG 440 ==
LOC: FTE 18:21 → MS1 10-15 01:44
PROVIDERS: ADMIT Internal Medicine; ATTEND Internal Medicine
DX: K85.20 Alcohol induced acute pancreatitis without necrosis or infection (principal); F10.10 Alcohol abuse, uncomplicated; E66.9 Obesity, unspecified; Z68.35 Body mass index [BMI] 35.0-35.9, adult; E78.00 Pure hypercholesterolemia, unspecified; R16.2 Hepatomegaly with splenomegaly, not elsewhere classified; K59.00 Constipation, unspecified
CPT/HCPCS: 36415; 74177; 80048; 80053; 80061; 81001; 83036; 83605; 83690; 83735; 84100; 85025; 87086; 96374; J2185; J2270; J2765; J3480; J7030; Q9967